=== PATIENT | male | born 1945 | race American Indian/Alaskan Native ===

== ENCOUNTER 2020-11-09 12:39 | Outpatient (CLI) | payer MEDICARE ==
--- NOTE | 2020-11-09 13:52 | XRay Report ---
ABDOMEN 1 VIEW(S) INDICATION / CLINICAL INFORMATION: CALCULUS IN BLADDER. COMPARISON: None available. FINDINGS: TUBES / LINES: A left ureteral stent and catheter in the bladder are identified which appear in good position. BOWEL GAS PATTERN: There is moderate fecal retention. No evidence for bowel obstruction. FREE AIR / EXTRALUMINAL GAS: None seen. ADDITIONAL FINDINGS: Bilateral nephrolithiasis is suspected in the inferior kidneys. No obvious calci fication overlying the bladder. IMPRESSION: Bilateral nephrolithiasis. Mild fecal retention. Signer Name: Mark Flor Jr, MD Signed: 11/09/2020 1:48 PM Workstation Name: [id number]
== END 2020-11-09 12:40 | disposition home or self-care (01) ==
LOC: XRAY 12:39
PROVIDERS: ATTEND Urology
DX: N20.0 Calculus of kidney (principal); N21.0 Calculus in bladder; K59.00 Constipation, unspecified; Z96.0 Presence of urogenital implants
CPT/HCPCS: 74018